=== PATIENT | female | born 1955 | race Caucasian/White ===

== ENCOUNTER 2017-12-01 10:14 | Day surgery (SDC) | payer BC, SELFPAY ==
[2017-12-01] VITALS (7 sets, daily range): BP systolic 139–155; BP diastolic 79–84; PULSE 69–86; RESP 16–18; TEMP 36.4–37.2; O2SAT 95–98; BMI 34.2
[2017-12-01 10:53] LABS: Absolute Lymphocyte Count 2.35 X10^3/ul (0.83-4.51); Absolute Neutrophil Count 3.8 X10^3/uL (2.0-7.7); Basophil# 0.07 X10^3/uL; Eosinophil# 0.23 X10^3/uL; Eosinophils% 3.3 % (0-5); Hematocrit 38.9 % (37-47); Hemoglobin 12.4 g/dl (12.0-15.0); Lymphocyte # 2.35 X10^3/ul (4.0); Lymphocyte % 33.8 % (19-41); Mean Corp Hgb Conc 31.9 g/gl (32-36); Mean Corpuscular Hgb 27.1 pg (27.0-32.0); Mean Corpuscular Volume 85.1 fL (81-99); Mean Platelet Vol. 10.1 fl (6.2-12.0); Monocyte# 0.48 X10^3/uL; Monocyte% 6.9 % (0-10); Neutrophil # 3.81 X10^3/uL (2.7-7.7); Neutrophil % 54.9 % (47-70); Platelet Count 270 K/mm3 (150-450); RBC Distribution Width CV 13.8 % (11.6-14.6); RBC Distribution Width SD 42.4 fl (35.1-43.9); Red Blood Count 4.57 M/mm3 (4.2-5.4)
[2017-12-01 10:55] LABS: POSITIVE COUNT NO; POSITIVE DIFFERENTIAL NO; POSITIVE MORPHOLOGY NO
[2017-12-01 11:25] LABS: Bedside Glucose 89 mg/dL (70-110)
[2017-12-01 11:48] LABS: Anion Gap 8 (5-15); BUN 15 mg/dL (7-18); Calcium,Total 8.4 mg/dL (8.5-10.1); Chloride 108 mmol/L (98-107); Creatinine, Serum 0.79 mg/dL (0.55-1.02); EST Glomerular Filtration Rate 78 mL/min (>60); Est Glom Filt Rate - Afr Amer 94 mL/min (>60); Estimated Creatinine Clearance 59.51 ml/min; Glucose 89 mg/dL (74-106); Potassium 4.1 mmol/L (3.5-5.1); Sodium Level 142 mmol/L (136-145)
--- NOTE | 2017-12-01 12:00 | EMB_PTH ---
PATIENT: SCOT ANDERS LOC: [facility] [place] U#:[id number] AGE/SX: 62/F ROOM: RE12/01/[address]: Dr. Mayela Gallego MD : [id number] BED: DIS: 12/01/2017 SPEC #: [id number] RECD: 12/01/17 14:51 STATUS: INA DANILO #: [id number] VISHNU: 12/01/17 12:[address]: Mayela Gallego DEPT: SURGICAL PATHOLOGY RECD BY: Piotr Shah ENTERED: 12/02/17 09:18 SP TYPE: ENDOM BX/C TORO DR: Dr. Linden Cuevas MD No Primary Care Phys Tissues: Endometrium, NOS Procedures: Surgery Specimen Level IV HEADER OPERATION: Hysteroscopy, dilation and curettage PRE-OP DIAGNOSIS: Thickened endometrium TISSUE SUBMITTED: Endometrial curettings MICROSCOPIC DIAGNOSIS Endometrial curettings: Rare fragments of benign endometrial epithelium consistent with atrophic endometrium. A few fragments of benign squamous epithelium. GABE:sharon 12/05/17 COMMENT Clinical correlation and appropriate follow up are necessary. MICROSCOPIC DESCRIPTION Slides are reviewed. GROSS DESCRIPTION Received in fixative is one container labeled with the patient's name and designated endometrial curettings. The specimen consists of multiple minute fragments of light ríos soft tissue that in aggregate measure 1 x 0.5 x <0.1 cm. The specimen is submitted in its entirety in one cassette. / AM:sharon 12/02/17 TC:4 CPT: 37218
--- NOTE | 2017-12-01 12:33 | PCM.DC.D&C ---
Discharge Diet: - - Diabetic diet Discharge Activity: May Drive - after 24 hours, May Shower May resume sexual activity in: 1-2 weeks Weight Bearing Status: Weight bearing as tolerated Allergies/Adverse Reactions: Allergies bee pollen Allergy (Verified 11/25/17 12:07) Anaphylaxis Penicillins Allergy (Verified 11/25/17 12:07) Hives Sulfa (Sulfonamide Antibiotics) Allergy (Verified 11/25/17 12:07) Hives adhesive tape Adverse Reaction (Verified 11/25/17 12:07) BLISTERS Medications to take at Discharge Acetaminophen [Tylenol Arthritis] 1,300 mg PO Q8H 11/25/17 Atorvastatin Calcium [Lipitor] 10 mg PO QHS 11/25/17 Epinephrine [Epi Pen] 0.3 mg IM X1 11/25/17 Lisinopril [Zestril] 10 mg PO DAILY 11/25/17 Metformin HCl [Metformin HCl ER] 750 mg PO BID 11/25/17 Multivit with Calcium,Iron,Min [Multiple Vitamins For Women] 1 each PO DAILY 11/25/17 Naproxen Sodium [Aleve] 440 mg PO Q12H PRN PRN 11/25/17 Vitamin B Complex 2 each PO DAILY 11/25/17 Primary Care Physician: Linden Cuevas MD [Primary Care Provider] - Test Results: Test results from this visit will be discussed in further detail at your follow-up appointment, if applicable.
--- NOTE | 2017-12-01 12:34 | PCM.OPRPT ---
Report of Operation Date of Procedure: 12/01/17 Pre-Operative Diagnosis: Thickened endometrium Post-Operative Diagnosis: Same Surgery/Procedure Performed:: Hysteroscopy with D&C Description of Surgical Findings:: Uterus sounded to 6cm. Small submucosal fibroid visualized. Atrophic endometrium. Type of Anesthesia:: Local MAC Estimated Blood Loss (mL): none Fluids Replaced: 700ml Description of Procedure: Patient taken to OR where MAC anesthesia was given. Patient placed in the dorsal lithotomy position. She was prepped & draped in the normal sterile fashion. Anterior lip cervix was grasped with a tenaculum after inserting a speculum. Paracervical block given. Cervix was gently dilated. Hysteroscope introduced & above findings noted. Hysteroscopy removed. Sharp but gentle curettage performed for scant tissue. At end of procedure all instruments removed from vaginal cavity. Vaginal sweep performed. - Complications none
== END 2017-12-01 14:46 | disposition home or self-care (01) ==
LOC: SDC 10:19 → AC 10:21
PROVIDERS: PCP Family Medicine; Visit Provider Obstetrics & Gynecology
PROC: 0UDB8ZZ Extraction of Endometrium, Via Natural or Artificial Opening Endoscopic (ICD-10-PCS; CPT 58558; principal; 2017-12-01 11:50)
DX: N85.8 Other specified noninflammatory disorders of uterus (principal); D25.0 Submucous leiomyoma of uterus; E11.9 Type 2 diabetes mellitus without complications; Z79.84 Long term (current) use of oral hypoglycemic drugs; Z79.899 Other long term (current) drug therapy
CPT/HCPCS: 58558; 36415; 80048; 82962; 85025; 88305; J7120